=== PATIENT | male | born 1970 | race American Indian/Alaskan Native ===

== ENCOUNTER 2017-06-28 08:16 | Emergency (ER) | payer SELFPAY ==
[2017-06-28 08:30] VITALS: BP 144/100
[2017-06-28] MEDS ORDERED: MOTRIN PO ONE (10:57)
--- NOTE | 2017-06-28 11:00 | Emergency Department Report ---
ED Extremity Problem HPI - General Chief complaint: Extremity Injury, Upper Stated complaint: LEFT ARM PAIN Time Seen by Provider: 06/28/17 10:43 Source: patient Mode of arrival: Ambulatory Limitations: No Limitations - History of Present Illness Initial comments: 46-year-old male past medical history chronic neck pain presents with complaint of acute on chronic neck left-sided pain radiating to left shoulder. Denies any acute trauma. Denies chest pain palpitations shortness of breath nausea vomiting or diaphoresis. This is been ongoing for several months. Patient states it is worse with exertion of his left upper extremity. The patient is awake alert and oriented 3 not in acute distress. MD Complaint: extremity pain, extremity swelling, joint paint Onset/Timin -: week(s) Location: left, upper extremity -: Yes arthralgia Quality: aching Consistency: intermittent Improves with: nothing Worsens with: exertion Associated Symptoms: denies other symptoms - Related Data Previous Rx's Medication Instructions Recorded Last Taken Type Cyclobenzaprine [Flexeril] 10 mg PO TID PRN #12 tablet 06/28/17 Unknown Rx Naproxen 500 mg PO BID PRN #20 tablet 06/28/17 Unknown Rx Allergies Allergy/AdvReac Type Severity Reaction Status Date / Time No Known Allergies Allergy Unverified 06/28/17 08:27 ED Review of Systems ROS: Stated complaint: LEFT ARM PAIN Other details as noted in HPI Constitutional: denies: chills, fever Eyes: denies: eye pain, eye discharge, vision change ENT: denies: ear pain, throat pain Respiratory: denies: cough, shortness of breath, wheezing Cardiovascular: denies: chest pain, palpitations Endocrine: no symptoms reported Gastrointestinal: denies: abdominal pain, nausea, diarrhea Genitourinary: denies: urgency, dysuria Musculoskeletal: arthralgia (7+ motnhs of intermittent LUE shoulder and elbow joint aches). denies: back pain, joint swelling Skin: denies: rash, lesions Neurological: denies: headache, weakness, paresthesias Psychiatric: denies: anxiety, depression Hematological/Lymphatic: denies: easy bleeding, easy bruising ED Past Medical Hx - Past Medical History Previous Medical History?: No - Surgical History Past Surgical History?: No - Social History Smoking Status: Current Every Day Smoker Substance Use Type: Alcohol, Marijuana - Medications Home Medications: Home Medications Medication Instructions Recorded Confirmed Last Taken Type Cyclobenzaprine [Flexeril] 10 mg PO TID PRN #12 tablet 06/28/17 Unknown Rx Naproxen 500 mg PO BID PRN #20 tablet 06/28/17 Unknown Rx ED Physical Exam - General Limitations: No Limitations General appearance: alert, in no apparent distress - Head Head exam: Present: atraumatic, normocephalic - Eye Eye exam: Present: normal appearance, PERRL, EOMI - ENT ENT exam: Present: mucous membranes moist - Neck Neck exam: Present: normal inspection, full ROM - Respiratory Respiratory exam: Present: normal lung sounds bilaterally. Absent: respiratory distress - Cardiovascular Cardiovascular Exam: Present: regular rate, normal rhythm. Absent: systolic murmur, diastolic murmur, rubs, gallop - GI/Abdominal GI/Abdominal exam: Present: soft, normal bowel sounds - Rectal Rectal exam: Present: deferred - Extremities Exam Extremities exam: Present: normal inspection - Back Exam Back exam: Present: normal inspection - Neurological Exam Neurological exam: Present: alert, oriented X3, CN II-XII intact, normal gait - Expanded Neurological Exam Expanded Patient oriented to: Present: person, place, time Cranial nerves: EOM's Intact: Normal, Facial Sensation: Normal Sensory exam: Upper Extremity Light Touch: Normal, Lower Extremity Light Touch: Normal Motor strength exam: RUE: 5, LUE: 5, RLE: 5, LLE: 5 Best Eye Response (Jamie): (4) open spontaneously Best Motor Response (Jamie): (6) obeys commands Best Verbal Response ([place]): (5) oriented Jamie Total: 15 - Psychiatric Psychiatric exam: Present: normal affect, normal mood - Skin Skin exam: Present: warm, dry, intact, normal color. Absent: rash ED Course Vital Signs 06/28/17 08:27 Temperature 98.2 F Pulse Rate 82 Respiratory 20 Rate Blood Pressure 144/100 O2 Sat by Pulse 97 Oximetry ED Medical Decision Making - Medical Decision Making A/P: Acute on chronic neck pain, cervical radiculopathy 1-x-ray C-spine consistent with degenerative changes. Strength 5/5 bilateral upper extremities. 2-naproxen and Flexeril when necessary 3-follow-up with primary care and orthopedics Critical care attestation.: If time is entered above; I have spent that time in minutes in the direct care of this critically ill patient, excluding procedure time. ED Disposition Clinical Impression: Cervical radiculopathy, Chronic neck pain Disposition: TO HOME OR SELFCARE Is pt being admited?: No Does the pt Need Aspirin: No Condition: Stable Instructions: Cervical Radiculopathy (ED), Arthralgia (ED), Degenerative Disc Disease (ED) Prescriptions: Cyclobenzaprine [Flexeril] 10 mg PO TID PRN #12 tablet PRN Reason: Muscle Spasm Naproxen 500 mg PO BID PRN #20 tablet PRN Reason: Pain Referrals: [facility] [Provider Group] - 3-5 Days [facility] [Provider Group] - 3-5 Days JAY ANDRADE MD [Staff Physician] - 3-5 Days Forms: Accompanied Note, Work/School Release Form(ED) Time of Disposition: 13:09
--- NOTE | 2017-06-28 12:20 | XRay Report ---
LEFT ELBOW, 2 views: History: left elbow pain. The bony architecture is intact without evidence of fracture or dislocation. No significant soft tissue abnormality is seen. IMPRESSION: Normal left elbow.
--- NOTE | 2017-06-28 12:21 | XRay Report ---
CERVICAL SPINE, 3 views: History: Neck pain. Findings: There is reversal of the normal cervical lordosis with mild degenerative disc disease at C4-5 and C5-6. No evidence for fracture, bone lesion or subluxation. The dens is intact. The prevertebral soft tissues are normal thickness. Impression: Reversal of the normal cervical lordosis. Mild cervical spondylosis. No acute injury is appreciated.
--- NOTE | 2017-06-28 12:21 | XRay Report ---
LEFT SHOULDER: History: Left shoulder pain. Routine views demonstrate normal bony and soft tissue structures with normal joint alignment of the shoulder. IMPRESSION: Normal study.
== END 2017-06-28 13:00 | disposition home or self-care (01) ==
LOC: ED 08:16
DX: M54.12 Radiculopathy, cervical region (principal); G89.29 Other chronic pain; F17.200 Nicotine dependence, unspecified, uncomplicated; F12.10 Cannabis abuse, uncomplicated
CPT/HCPCS: 72040; 93005; 93010; 99283

== ENCOUNTER 2020-01-02 02:27 | Emergency (ER) | payer SELFPAY ==
[2020-01-02 03:03] VITALS: BP 141/91
[2020-01-02] MEDS ORDERED: KETOROLAC 30 MG/1 ML INJ IV ONE (05:26)
[2020-01-02] MEDS ORDERED: CLINDAMYCIN 300 MG/50 mL 300 MG/50 ML BAG IV ONE (05:26)
--- NOTE | 2020-01-02 05:32 | Emergency Department Report ---
ED Extremity Problem HPI - General Chief complaint: Extremity Injury, Lower Stated complaint: SORE ON LFT PINKIE TOE HURTING Time Seen by Provider: 01/02/20 05:22 Source: patient Mode of arrival: Ambulatory Limitations: No Limitations - History of Present Illness Initial comments: 49-year-old -[place] male presents to the emergency room for left fifth digit swelling redness and a black spot. Patient reports is painful to walk or touch. Patient states 1 week ago he was cutting grass and later is noticed a bump on his small toe. Patient states now the swelling has increased and it started to swell his foot up to his ankle. Patient states that it tingles as well. MD Complaint: extremity pain, extremity swelling Location: left, toe, other (foot) History of Same: No -: Yes myalgia Radiation: none Severity scale (0 -10): 10 Quality: burning, stabbing, sharp Consistency: constant Improves with: nothing Worsens with: weight bearing, walking, palpation Associated Symptoms: denies: denies other symptoms, chest pain, shortness of breath, fever - Related Data Previous Rx's Medication Instructions Recorded Last Taken Type Cyclobenzaprine [Flexeril] 10 mg PO TID PRN #12 tablet 06/28/17 Unknown Rx Naproxen 500 mg PO BID PRN #20 tablet 06/28/17 Unknown Rx Clindamycin [Clindamycin CAP] 300 mg PO Q8H 10 Days #30 cap 01/02/20 Unknown Rx Ibuprofen [Motrin 800 MG tab] 800 mg PO Q8HR PRN #30 tablet 01/02/20 Unknown Rx traMADoL [Ultram 50 MG tab] 50 mg PO Q6HR PRN #15 tablet 01/02/20 Unknown Rx Allergies Allergy/AdvReac Type Severity Reaction Status Date / Time No Known Allergies Allergy Unverified 06/28/17 08:27 ED Review of Systems ROS: Stated complaint: SORE ON LFT PINKIE TOE HURTING Other details as noted in HPI Comment: All other systems reviewed and negative ED Past Medical Hx - Past Medical History Previous Medical History?: No - Surgical History Past Surgical History?: No - Social History Smoking Status: Current Every Day Smoker Substance Use Type: None - Medications Home Medications: Home Medications Medication Instructions Recorded Confirmed Last Taken Type Cyclobenzaprine [Flexeril] 10 mg PO TID PRN #12 tablet 06/28/17 Unknown Rx Naproxen 500 mg PO BID PRN #20 tablet 06/28/17 Unknown Rx Clindamycin [Clindamycin CAP] 300 mg PO Q8H 10 Days #30 cap 01/02/20 Unknown Rx Ibuprofen [Motrin 800 MG tab] 800 mg PO Q8HR PRN #30 tablet 01/02/20 Unknown Rx traMADoL [Ultram 50 MG tab] 50 mg PO Q6HR PRN #15 tablet 01/02/20 Unknown Rx ED Physical Exam - General Limitations: No Limitations General appearance: alert, in no apparent distress - Head Head exam: Present: atraumatic, normocephalic - Eye Eye exam: Present: normal appearance - ENT ENT exam: Present: mucous membranes moist - Expanded Lower Extremity Exam Left Ankle exam: Present: full ROM, tenderness, swelling, erythema Foot/Toe exam: Present: full ROM, tenderness, swelling, ecchymosis, erythema Neuro vascular tendon exam: Present: no vascular compromise - Neurological Exam Neurological exam: Present: alert, oriented X3 - Psychiatric Psychiatric exam: Present: normal affect, normal mood ED Course Vital Signs 01/02/20 02:55 Temperature 98.0 F Pulse Rate 91 H Respiratory 18 Rate Blood Pressure 141/91 O2 Sat by Pulse 98 Oximetry - Reevaluation(s) Reevaluation #1: 01/02/20 06:45 Patient reports he feels 80% better. ED Medical Decision Making - Lab Data Result diagrams: 01/02/20 05:33 01/02/20 05:33 - Medical Decision Making 49-year-old -[place] male presents to the emergency room for left fifth digit swelling redness and a black spot. Patient reports is painful to walk or touch. Patient states 1 week ago he was cutting grass and later is noticed a bump on his small toe. Patient states now the swelling has increased and it started to swell his foot up to his ankle. Patient states that it tingles as well. Patient appears to have a cellulitis with questionable necrotic spot on his fifth digit of his left foot. Ordered CBC CMP lactic acid and add TSH. IV clindamycin Toradol for pain. Patient will be discharged home on clindamycin 300 mg 3 times daily for 10 days. Also pain medicine will be ibuprofen and tramadol. Patient is instructed to increase his fluid intake. Patient is instructed to follow-up with a primary care provider. Critical care attestation.: If time is entered above; I have spent that time in minutes in the direct care of this critically ill patient, excluding procedure time. ED Disposition Clinical Impression: Cellulitis of left toe, Cellulitis of left foot Disposition: DC- TO HOME OR SELFCARE Is pt being admited?: No Does the pt Need Aspirin: No Condition: Stable Instructions: Cellulitis (ED) Additional Instructions: Complete antibiotics as prescribed. Pain medication as needed. Do not operate heavy machinery while taking tramadol. Please increase your fluid intake. And follow-up with a primary care provider. Prescriptions: Clindamycin [Clindamycin CAP] 300 mg PO Q8H 10 Days #30 cap Ibuprofen [Motrin 800 MG tab] 800 mg PO Q8HR PRN #30 tablet PRN Reason: Pain , Severe (7-10) traMADoL [Ultram 50 MG tab] 50 mg PO Q6HR PRN #15 tablet PRN Reason: Pain Referrals: PRIMARY MD AMANDA [Primary Care Provider] - 3-5 Days CHUY MELVIN MD [Staff Physician] - 3-5 Days Forms: Work/School Release Form(ED)
[2020-01-02 06:09] LABS: Basophils # (Auto) 0.1 K/mm3 (0.0-0.1); Basophils % (Auto) 0.6 % (0.0-1.8); Eosinophils # (Auto) 0.2 K/mm3 (0.0-0.4); Eosinophils % (Auto) 1.7 % (0.0-4.3); Hematocrit 55.1 % (35.5-45.6); Hemoglobin 18.7 gm/dl (11.8-15.2); Lymphocytes # (Auto) 3.1 K/mm3 (1.2-5.4); Lymphocytes % (Auto) 35.7 % (13.4-35.0); Mean Corpuscular HGB Conc 34 % (32-34); Mean Corpuscular Volume 92 fl (84-94); Monocytes # (Auto) 0.8 K/mm3 (0.0-0.8); Monocytes % (Auto) 8.8 % (0.0-7.3); Platelet Count 198 K/mm3 (140-440); Red Blood Count 6.02 M/mm3 (3.65-5.03); Red Cell Distribution Width 13.5 % (13.2-15.2)
[2020-01-02 06:31] LABS: Alanine Aminotransferase 20 units/L (7-56); Albumin 4.7 g/dL (3.9-5); BUN/Creatinine Ratio 11; Blood Urea Nitrogen 9 mg/dL (9-20); Calcium 9.8 mg/dL (8.4-10.2); Hemolysis Index 46
== END 2020-01-02 06:59 | disposition home or self-care (01) ==
LOC: ED 02:27
DX: L03.032 Cellulitis of left toe (principal); L03.116 Cellulitis of left lower limb; F17.200 Nicotine dependence, unspecified, uncomplicated; Z79.899 Other long term (current) drug therapy
CPT/HCPCS: 36415; 80053; 82140; 83615; 85025; 96365; 96375; 99283; J1885

== ENCOUNTER 2020-04-03 12:03 | Emergency (ER) | payer SELFPAY ==
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
[2020-04-03] MEDS ORDERED: IBUPROFEN 600 MG TAB PO ONE ×2 (12:46)
[2020-04-03 12:51] VITALS: BP 134/94
== END 2020-04-03 13:00 | disposition home or self-care (01) ==
LOC: ED 12:03
DX: S16.1XXA Strain of muscle, fascia and tendon at neck level, initial encounter (principal); F17.200 Nicotine dependence, unspecified, uncomplicated; Z79.899 Other long term (current) drug therapy; V49.49XA Driver injured in collision with other motor vehicles in traffic accident, initial encounter; Y92.410 Unspecified street and highway as the place of occurrence of the external cause; Y93.89 Activity, other specified; Y99.8 Other external cause status
CPT/HCPCS: 99283